=== PATIENT | female | born 1995 ===

== ENCOUNTER 2017-12-07 21:56 | Inpatient (IN) | payer OTHER ==
[~2017-12-07] VITALS: Ht 154.9 cm; Wt 59.9 kg
[2017-12-07 23:13] LABS: ABSOLUTE BASOPHIL COUNT 0 /CUMM (0.0-0.2); ABSOLUTE EOSINOPHIL COUNT 0 /CUMM (0.0-0.7); ABSOLUTE GRANULOCYTE CT 6.9 /CUMM (1.4-6.5); ABSOLUTE MONOCYTE COUNT 0.7 /CUMM (0.10-0.60); BASOPHIL % 0.2 % (0.0-2.0); EOSINOPHIL % 0.4 % (0-5); GRANULOCYTE % 64.5 % (42.2-75.2); HEMATOCRIT 35.3 % (37-47); MEAN CORPUSCULAR HGB CONC 32.5 G/DL (33.0-37.0); MEAN CORPUSCULAR VOLUME 80.1 FL (81.0-99.0); MEAN PLATELET VOLUME 8.5 FL (7.4-10.4); PLATELET COUNT 281 /CUMM (130-400); RBC DISTRIBUTION WIDTH 14.4 % (11.5-14.5); RED BLOOD CELL CT 4.41 /CUMM (4.20-5.40); WHITE BLOOD CELL COUNT 10.6 /CUMM (4.8-10.8)
--- NOTE | 2017-12-07 23:32 | History & Physical ---
General Information and HPI MD Statement: I have seen and personally examined INOCENTE GORDON and documented this H&P. The patient is a 22 year old female at 40[] weeks and 5[] days gestation who presented with a chief complaint of []. 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 No Contractions: Q5 MINUTES Patient for Induction? No Labs Blood Type & Rh: O+ Antibody Screen: NEG Hct/Hgb & Platelets #1: Hct/Hgb & Platelets #2: NEG Rubella: IMMUNE VDRL #1: NR VDRL #2: PENDING HbsAg: NEGF HIV #1: NEG HIV #2 PEND 1 Hr PG: PEND Group B Strep: POSITIVE Initial Ultrasound: NL Anatomy Ultrasound: NEG Genetic Testing: NEG Last 24 Hrs of Labs/Sharad: Laboratory Tests 12/07/17 2300: Creatinine Pending, Uric Acid Pending, AST Pending, ALT Pending, Lactate Dehydrogenase Pending, CBC w Diff NO MAN DIFF REQ, RBC 4.41, MCV 80.1 L, MCH 26.0 L, RDW 14.4, MPV 8.5, Gran % 64.5, Lymphocytes % 28.6, Monocytes % 6.3, Eosinophils % 0.4, Basophils % 0.2, Absolute Granulocytes 6.9 H, Absolute Lymphocytes 3.0, Absolute Monocytes 0.7 H, Absolute Eosinophils 0, Absolute Basophils 0, PUBS MCHC 32.5 L, Urine Color YEL, Urine Clarity CLEAR, Urine pH 6.5, Ur Specific [place] 1.025, Urine Protein 30 H, Urine Ketones NEG, Urine Nitrite NEG, Urine Bilirubin NEG, Urine Urobilinogen 0.2, Ur Leukocyte Esterase NEG, Ur Microscopic SEDIMENT EXAMINED, Urine RBC RARE, Urine WBC 1-3 H, Ur Epithelial Cells FEW, Urine Bacteria FEW H, Urine Mucus MOD H, Urine Hemoglobin NEG, Urine Glucose NEG Microbiology 12/07 2313 URINE ROUT: Urine Culture - COLB Assessment/Plan Assessment/Plan: ASSESS TERM PIH POSITIVE GBS PLANAMPICILLIN MAG SULFATE PITOCIN As Ranked By This Provider Problem List: 1. Core Measures Venous Thromboembolism VTE Risk Factors / No Mechanical VTE Prophylaxis d/t Other No VTE Pharm Prophylaxis d/t LowRisk-No Interven Req'd
[2017-12-08 04:31] LABS: ABSOLUTE BASOPHIL COUNT 0 /CUMM (0.0-0.2); ABSOLUTE EOSINOPHIL COUNT 0 /CUMM (0.0-0.7); ABSOLUTE GRANULOCYTE CT 9.9 /CUMM (1.4-6.5); ABSOLUTE LYMPH COUNT 2.4 /CUMM (1.2-3.4); ABSOLUTE MONOCYTE COUNT 0.7 /CUMM (0.10-0.60); BASOPHIL % 0.2 % (0.0-2.0); EOSINOPHIL % 0.1 % (0-5); GRANULOCYTE % 75.9 % (42.2-75.2); MEAN CORPUSCULAR HGB 26.1 PG (27.0-31.0); MEAN CORPUSCULAR HGB CONC 32.8 G/DL (33.0-37.0); MEAN CORPUSCULAR VOLUME 79.6 FL (81.0-99.0); MEAN PLATELET VOLUME 8.4 FL (7.4-10.4); PLATELET COUNT 277 /CUMM (130-400); RBC DISTRIBUTION WIDTH 14.2 % (11.5-14.5); RED BLOOD CELL CT 4.28 /CUMM (4.20-5.40)
--- NOTE | 2017-12-08 05:53 | PN- Obstetrical ---
Subjective Subjective: I FEEL HURT Objective Last 24 Hrs of Vital Signs/I&O BP 130/106 Intake & Output 12/08 0800 12/08 0000 12/07 1600 Intake Total Output Total Balance Patient 132 lb Weight Physical Exam: PE PETITE FEMALE ABD SOFT BETWEEN CTX EXT +2 REFLEXES -HOMANS Obstetric Exam Dilation (cm): 9 Effacement (%): 100 Station: 1 Membranes: AROM Fluid: bloody show Multiple Gestation? No Contractions: Q 3MIN Assessment/Plan Assessment/Plan ASSESS TERM PREGNANCCY PIH SEVERE +GBS PLAN [id number] OBSEVRE FOR
[2017-12-08 05:54] VITALS: BP 143/104
--- NOTE | 2017-12-08 06:52 | Labor & Delivery Summary ---
Delivery Summary Vaginal Delivery: Vaginal: vertex Episiotomy/Lacerations: Episiotomy/Lacerations: RIGHT MEDIOLATERAL Placenta: Placenta: spontanteous, normal, 3 vessel, CALCIFICATION TO PATH Anesthesia: block Additional Comments: WITHOUT MECONIUM VIABLE MALE INFANT OVER RMLE 3 VESSEL CORD. PLACENTA BY CCT WITH TRILING MEMBRANES . RMLE REPAIRED IN LAYERS WITH LOCAL .CERVIX AND RECTUM FREE OF SUTURES AFTER REPAIR
[2017-12-08 12:26] LABS: ABSOLUTE BASOPHIL COUNT 0 /CUMM (0.0-0.2); ABSOLUTE EOSINOPHIL COUNT 0 /CUMM (0.0-0.7); ABSOLUTE GRANULOCYTE CT 16.3 /CUMM (1.4-6.5); ABSOLUTE LYMPH COUNT 1.5 /CUMM (1.2-3.4); ABSOLUTE MONOCYTE COUNT 0.8 /CUMM (0.10-0.60); BASOPHIL % 0.1 % (0.0-2.0); EOSINOPHIL % 0 % (0-5); HEMATOCRIT 31.4 % (37-47); MEAN CORPUSCULAR HGB 26.6 PG (27.0-31.0); MEAN CORPUSCULAR HGB CONC 32.9 G/DL (33.0-37.0); MEAN CORPUSCULAR VOLUME 80.8 FL (81.0-99.0); MEAN PLATELET VOLUME 8.9 FL (7.4-10.4); PLATELET COUNT 258 /CUMM (130-400); RBC DISTRIBUTION WIDTH 14.5 % (11.5-14.5); RED BLOOD CELL CT 3.89 /CUMM (4.20-5.40); WHITE BLOOD CELL COUNT 18.7 /CUMM (4.8-10.8)
[2017-12-08 12:42] LABS: GRANULOCYTE % 87.4 % (42.2-75.2)
[2017-12-08 20:22] LABS: ABSOLUTE BASOPHIL COUNT 0 /CUMM (0.0-0.2); ABSOLUTE EOSINOPHIL COUNT 0 /CUMM (0.0-0.7); ABSOLUTE GRANULOCYTE CT 10.1 /CUMM (1.4-6.5); ABSOLUTE LYMPH COUNT 2.4 /CUMM (1.2-3.4); BASOPHIL % 0.3 % (0.0-2.0); EOSINOPHIL % 0.1 % (0-5); GRANULOCYTE % 74.5 % (42.2-75.2); HEMATOCRIT 26.7 % (37-47); MEAN CORPUSCULAR HGB 26.4 PG (27.0-31.0); MEAN CORPUSCULAR HGB CONC 32.9 G/DL (33.0-37.0); MEAN CORPUSCULAR VOLUME 80.3 FL (81.0-99.0); MEAN PLATELET VOLUME 8.1 FL (7.4-10.4); PLATELET COUNT 246 /CUMM (130-400); RBC DISTRIBUTION WIDTH 14.4 % (11.5-14.5); RED BLOOD CELL CT 3.33 /CUMM (4.20-5.40); WHITE BLOOD CELL COUNT 13.5 /CUMM (4.8-10.8)
[2017-12-09 08:48] LABS: ABSOLUTE BASOPHIL COUNT 0 /CUMM (0.0-0.2); ABSOLUTE EOSINOPHIL COUNT 0 /CUMM (0.0-0.7); ABSOLUTE GRANULOCYTE CT 9.6 /CUMM (1.4-6.5); ABSOLUTE LYMPH COUNT 2.8 /CUMM (1.2-3.4); ABSOLUTE MONOCYTE COUNT 0.7 /CUMM (0.10-0.60); BASOPHIL % 0.3 % (0.0-2.0); EOSINOPHIL % 0.2 % (0-5); GRANULOCYTE % 72.7 % (42.2-75.2); HEMATOCRIT 24.3 % (37-47); MEAN CORPUSCULAR HGB 25.8 PG (27.0-31.0); MEAN CORPUSCULAR HGB CONC 32.1 G/DL (33.0-37.0); MEAN CORPUSCULAR VOLUME 80.3 FL (81.0-99.0); MEAN PLATELET VOLUME 8.8 FL (7.4-10.4); PLATELET COUNT 229 /CUMM (130-400); RBC DISTRIBUTION WIDTH 14.4 % (11.5-14.5); RED BLOOD CELL CT 3.03 /CUMM (4.20-5.40); WHITE BLOOD CELL COUNT 13.1 /CUMM (4.8-10.8)
--- NOTE | 2017-12-09 11:05 | PN- Post Delivery/GYN ---
Subjective Subjective: No complaints Review of Systems: Negative review of systems Objective Last 24 Hrs of Vital Signs/I&O Blood pressure 116/60 Physical Exam: Petite, female lungs clear Abdomen soft no right upper quadrant tenderness fundus firm nontender lochia minimal extremities +1 edema reflexes +1 if Homans HEENT T anicteric Assessment/Plan Assessment/Plan Assessment status post normal spontaneous vaginal delivery associated with -induced hypertension help plan observe blood pressures consider oral labetalol
[2017-12-10] MEDS ORDERED: PERCOCET 5-3251 EACH PO (09:23)
[2017-12-10] MEDS ORDERED: IBUPROFEN800 M1 PO (09:23)
== END 2017-12-10 12:00 | DRG 560 ==
LOC: CBCO 21:56 → GNO 22:43
PROVIDERS: Specialist
PROC: 0W8NXZZ Division of Female Perineum, External Approach (ICD-10-PCS; principal; 2017-12-08)
PROC: 10E0XZZ Delivery of Products of Conception, External Approach (ICD-10-PCS; principal; 2017-12-08)
DX: O13.4 Gestational [pregnancy-induced] hypertension without significant proteinuria, complicating childbirth (principal); O99.824 Streptococcus B carrier state complicating childbirth; Z3A.40 40 weeks gestation of pregnancy; Z37.0 Single live birth
CPT/HCPCS: GNOP; GNOS; 36415; 81001; 87086; 87389; J0131; J0290; J3475